=== PATIENT | male | born 1955 | race Caucasian/White ===

== ENCOUNTER 2017-08-12 18:27 | Inpatient (IN) | payer OTHER, BC ==
[~2017-08-12] VITALS: Ht 182.9 cm; Wt 109.0 kg
[2017-08-12] VITALS (9 sets, daily range): BP systolic 105–132; BP diastolic 48–59
[~2017-08-12 18:27] MED LIST: heparin 10,000 units/1 ML INJ ONE; heparin, porcine/D5W 25,000 units/250ml premix IV ONE; nitroGLYCERIN 0.4mg SUBLingual tab SL ONE; nitroGLYCERIN in D5W 50mg/250ml (Tridil) infusion IV ONE
[2017-08-12] MEDS ORDERED: nitroGLYCERIN-Tridil 50MG/D5W 250 ML IV PRN (18:36)
[2017-08-12] MEDS ORDERED: aspirin 81mg tab.chew PO ONE ×3 (18:40→21:35)
[2017-08-12] MEDS ORDERED: heparin 10,000 units/1 ML INJ IV ONE (18:40)
[2017-08-12 18:51] LABS: BASOPHILS % (AUTO) 0.4 % (0-1); EOSINOPHILS # (AUTO) 0.2 X10'3 (0-0.9); EOSINOPHILS % (AUTO) 2.1 % (0-6); HEMATOCRIT 43.1 % (42.0-52.0); HEMOGLOBIN 14.9 g/dl (14.0-17.9); LYMPHOCYTES # (AUTO) 2.8 X10'3 (1.1-4.8); LYMPHOCYTES % (AUTO) 23.7 % (21-51); MEAN CORPUSCULAR HEMOGLOBIN 30.6 PG (27.0-31.0); MEAN CORPUSCULAR HGB CONC 34.7 % (33.0-36.5); MEAN CORPUSCULAR VOLUME 88.2 FL (78-98); MEAN PLATELET VOLUME 10.3 FL (7.4-10.4); MONOCYTES # (AUTO) 0.9 X10'3 (0-0.9); MONOCYTES % (AUTO) 7.5 % (2-12); NEUTROPHILS % (AUTO) 66.3 % (42-75); PLATELET COUNT 183 X10'3 (140-440); RED BLOOD COUNT 4.89 X10'6 (4.70-6.10); RED CELL DISTRIBUTION WIDTH 15.1 % (11.5-14.5)
[2017-08-12] MEDS: nitroGLYCERIN 0.4mg SUBLingual tab SL PRN ×2 (18:51→19:08)
[2017-08-12 18:59] LABS: PARTIAL THROMBOPLASTIN TIME 22 SECONDS (22-32); PROTHROMBIN TIME 10.2 SECONDS (9.0-12.0)
[2017-08-12] MEDS ORDERED: fentaNYL/PF 50MCG/1 ML 2ML syringe ONE (19:02)
[2017-08-12] MEDS ORDERED: iohexol 350 MG/1 ML 200ml bottle ONE (19:02)
[2017-08-12] MEDS ORDERED: midazolam 2 mg/2 ml injection ONE (19:02)
[2017-08-12] MEDS ORDERED: heparin 1,000unit/ml 10ml vial 10 ML ONE (19:02)
[2017-08-12] MEDS ORDERED: LIDOcaine 1%/PF (10mg/ml) 5ml vial ONE (19:02)
[2017-08-12 19:11] LABS: ALANINE AMINOTRANSFERASE 38 U/L (12-78); ALBUMIN 3.5 G/DL (3.4-5.0); ALKALINE PHOSPHATASE 89 IU/L (46-116); ANION GAP 8 (8-16); ASPARTATE AMINO TRANSFERASE 19 U/L (10-37); BILIRUBIN,TOTAL 1.1 MG/DL (0.1-1.0); BLOOD UREA NITROGEN 26 MG/DL (7-18); BUN/CREATININE RATIO 16.3 (5.4-32.0); CALCIUM 8.8 MG/DL (8.5-10.1); CHLORIDE 103 MMOL/L (99-107); GLUCOSE 368 MG/DL (70-104); SODIUM 138 MMOL/L (135-145); TOTAL CARBON DIOXIDE 26.6 MMOL/L (24-32); TOTAL PROTEIN 6.9 G/DL (6.4-8.2); eGFR 44 ML/MIN
[2017-08-12] MEDS ORDERED: ticagrelor 90mg tablet ONE (19:37)
[2017-08-12] MEDS ORDERED: nitroGLYCERIN 0.4mg SUBLingual tab SL PRN (20:00)
[2017-08-12] MEDS ORDERED: temazepam 15mg capsule PO PRN (21:15)
[2017-08-12] MEDS: amLODIPine 5mg tablet PO SCH (21:15)
[2017-08-12] MEDS ORDERED: normal saline 1000ml 1,000 ML IV SCH (21:35)
[2017-08-12] MEDS ORDERED: OXAZEpam 15mg capsule PO PRN (21:35)
[2017-08-12] MEDS ORDERED: ondansetron/PF 4mg/2ml inj IV PRN (21:35)
[2017-08-12] MEDS ORDERED: normal saline 1000ml 1,000 ML IV ONE (21:35)
[2017-08-12] MEDS ORDERED: proCHLORperazine 10 MG/2 ml inj IV PRN (21:35)
[2017-08-12 21:58] LABS: HEMOGLOBIN A1C 7.2 % (4.5-6.2)
[2017-08-12] MEDS: atorvastatin 20mg tablet PO SCH (22:03)
[2017-08-12 22:05] LABS: CHOL/HDL RATIO 2.5 (0.00-4.99); CHOLESTEROL 173 MG/DL (0-200); HDL CHOLESTEROL 69 MG/DL (35-60); LDL CHOLESTEROL 90 MG/DL (50-100); TRIGLYCERIDES 22 MG/DL (20-135)
[2017-08-13] VITALS (7 sets, daily range): BP systolic 121–152; BP diastolic 54–70
[2017-08-13 05:58] LABS: BASOPHILS # (AUTO) 0.1 X10'3 (0-0.2); BASOPHILS % (AUTO) 0.5 % (0-1); EOSINOPHILS # (AUTO) 0.3 X10'3 (0-0.9); EOSINOPHILS % (AUTO) 2.6 % (0-6); HEMATOCRIT 40.5 % (42.0-52.0); HEMOGLOBIN 14.1 g/dl (14.0-17.9); LYMPHOCYTES # (AUTO) 1.4 X10'3 (1.1-4.8); LYMPHOCYTES % (AUTO) 12.6 % (21-51); MEAN CORPUSCULAR HEMOGLOBIN 31.2 PG (27.0-31.0); MEAN CORPUSCULAR HGB CONC 34.9 % (33.0-36.5); MEAN CORPUSCULAR VOLUME 89.3 FL (78-98); MEAN PLATELET VOLUME 10.6 FL (7.4-10.4); MONOCYTES # (AUTO) 0.8 X10'3 (0-0.9); MONOCYTES % (AUTO) 7.1 % (2-12); NEUTROPHILS # (AUTO) 8.6 X10'3 (1.8-7.7); NEUTROPHILS % (AUTO) 77.2 % (42-75); PLATELET COUNT 157 X10'3 (140-440); RED BLOOD COUNT 4.53 X10'6 (4.70-6.10); WHITE BLOOD COUNT 11.2 X10'3 (4.5-11.0)
[2017-08-13 06:10] LABS: ALBUMIN 2.9 G/DL (3.4-5.0); ANION GAP 8 (8-16); BLOOD UREA NITROGEN 23 MG/DL (7-18); BUN/CREATININE RATIO 20.5 (5.4-32.0); CALCIUM 8.7 MG/DL (8.5-10.1); CHLORIDE 106 MMOL/L (99-107); CREATININE 1.12 MG/DL (0.60-1.10); GLUCOSE 136 MG/DL (70-104); POTASSIUM 3.6 MMOL/L (3.5-5.1); SODIUM 140 MMOL/L (135-145); TOTAL CARBON DIOXIDE 25.9 MMOL/L (24-32); eGFR 66 ML/MIN
[2017-08-13 07:58] LABS: LARGE PLATELETS FEW; PLATELET ESTIMATE NORMAL
[2017-08-13] MEDS: celeCOXIB 100mg capsule PO SCH (08:07)
[2017-08-13] MEDS: ticagrelor 90mg tablet PO SCH ×2 (08:08→20:20)
[2017-08-13] MEDS: atorvastatin 20mg tablet PO SCH (08:09)
[2017-08-13] MEDS: amLODIPine 5mg tablet PO SCH (08:09)
[2017-08-13] MEDS: aspirin 81mg tab.chew PO SCH (08:09)
[2017-08-13] MEDS ORDERED: ASPI-974 PO (23:44)
[2017-08-13] MEDS ORDERED: SILD20TA2 PO (23:44)
[2017-08-13] MEDS ORDERED: ATOR-2 PO (23:44)
[2017-08-13] MEDS ORDERED: LISI40TA4 PO (23:44)
[2017-08-13] MEDS ORDERED: FURO-150 PO (23:44)
[2017-08-13] MEDS ORDERED: HYDR25TA4 PO (23:44)
[2017-08-13] MEDS ORDERED: NEBI5TAB10 PO (23:44)
[2017-08-13] MEDS ORDERED: TEMA15CA PO (23:44)
[2017-08-13] MEDS ORDERED: CELE-85 PO (23:44)
[2017-08-14] MEDS ORDERED: AMLO10TA PO (00:06)
[2017-08-14 02:00] VITALS: BP 134/61
[2017-08-14 06:00] VITALS: BP 127/68
[2017-08-14 06:07] LABS: BASOPHILS # (AUTO) 0.1 X10'3 (0-0.2); BASOPHILS % (AUTO) 0.7 % (0-1); EOSINOPHILS # (AUTO) 0.3 X10'3 (0-0.9); EOSINOPHILS % (AUTO) 3.4 % (0-6); HEMOGLOBIN 14.9 g/dl (14.0-17.9); LYMPHOCYTES # (AUTO) 1.4 X10'3 (1.1-4.8); LYMPHOCYTES % (AUTO) 16.5 % (21-51); MEAN CORPUSCULAR HGB CONC 34.7 % (33.0-36.5); MEAN CORPUSCULAR VOLUME 89.4 FL (78-98); MEAN PLATELET VOLUME 10.6 FL (7.4-10.4); MONOCYTES # (AUTO) 0.7 X10'3 (0-0.9); MONOCYTES % (AUTO) 8.3 % (2-12); NEUTROPHILS # (AUTO) 6.2 X10'3 (1.8-7.7); NEUTROPHILS % (AUTO) 71.1 % (42-75); PLATELET COUNT 164 X10'3 (140-440); RED BLOOD COUNT 4.81 X10'6 (4.70-6.10); RED CELL DISTRIBUTION WIDTH 15.2 % (11.5-14.5); WHITE BLOOD COUNT 8.7 X10'3 (4.5-11.0)
[2017-08-14 06:15] LABS: ANION GAP 9 (8-16); BLOOD UREA NITROGEN 16 MG/DL (7-18); BUN/CREATININE RATIO 14.3 (5.4-32.0); CALCIUM 9.1 MG/DL (8.5-10.1); CHLORIDE 108 MMOL/L (99-107); CREATININE 1.12 MG/DL (0.60-1.10); GLUCOSE 99 MG/DL (70-104); SODIUM 142 MMOL/L (135-145); TOTAL CARBON DIOXIDE 25.5 MMOL/L (24-32); eGFR 66 ML/MIN
[2017-08-14 06:17] LABS: POTASSIUM 4.1 MMOL/L (3.5-5.1)
[2017-08-14] MEDS ORDERED: ASPI-974 PO (06:36)
[2017-08-14] MEDS ORDERED: ATOR-2 PO (06:38)
[2017-08-14] MEDS ORDERED: CELE-85 PO (06:39)
[2017-08-14] MEDS ORDERED: FURO-150 PO (06:40)
[2017-08-14] MEDS ORDERED: HYDR25TA4 PO (06:40)
[2017-08-14] MEDS ORDERED: LISI40TA4 PO (06:42)
[2017-08-14] MEDS ORDERED: NEBI5TAB10 PO (06:43)
[2017-08-14] MEDS ORDERED: NITR0.4T51 SL (06:52)
[2017-08-14] MEDS ORDERED: ASPI-1265 PO (06:52)
[2017-08-14] MEDS ORDERED: TICA90TA PO (06:52)
[2017-08-14] MEDS: amLODIPine 5mg tablet PO SCH (07:46)
[2017-08-14] MEDS: atorvastatin 20mg tablet PO SCH (07:46)
[2017-08-14] MEDS: ticagrelor 90mg tablet PO SCH (07:47)
[2017-08-14] MEDS: celeCOXIB 100mg capsule PO SCH (07:47)
[2017-08-14] MEDS: aspirin 81mg tab.chew PO SCH (07:47)
== END 2017-08-14 11:10 | disposition home or self-care (01) | DRG 246 ==
LOC: ER 18:28 → PCU 3S 19:57
PROVIDERS: ADMIT Internal Medicine Interventional Cardiology; ATTEND Internal Medicine Interventional Cardiology
PROC: 027034Z Dilation of Coronary Artery, One Artery with Drug-eluting Intraluminal Device, Percutaneous Approach (ICD-10-PCS; principal; 2017-08-12)
PROC: 4A023N7 Measurement of Cardiac Sampling and Pressure, Left Heart, Percutaneous Approach (ICD-10-PCS; 2017-08-12)
PROC: B2111ZZ Fluoroscopy of Multiple Coronary Arteries using Low Osmolar Contrast (ICD-10-PCS; 2017-08-12)
PROC: B2151ZZ Fluoroscopy of Left Heart using Low Osmolar Contrast (ICD-10-PCS; 2017-08-12)
PROC: B41F1ZZ Fluoroscopy of Right Lower Extremity Arteries using Low Osmolar Contrast (ICD-10-PCS; 2017-08-12)
DX: I21.09 ST elevation (STEMI) myocardial infarction involving other coronary artery of anterior wall (principal); I50.31 Acute diastolic (congestive) heart failure; E10.22 Type 1 diabetes mellitus with diabetic chronic kidney disease; N18.3 Chronic kidney disease, stage 3 (moderate); I13.0 Hypertensive heart and chronic kidney disease with heart failure and stage 1 through stage 4 chronic kidney disease, or unspecified chronic kidney disease; E78.2 Mixed hyperlipidemia; E78.00 Pure hypercholesterolemia, unspecified; I25.10 Atherosclerotic heart disease of native coronary artery without angina pectoris; Z96.41 Presence of insulin pump (external) (internal); Z79.82 Long term (current) use of aspirin; Z79.899 Other long term (current) drug therapy; Z88.6 Allergy status to analgesic agent
CPT/HCPCS: 93306; 93458; 96365; 96375; 99285; C9606; 36415; 71045; 80048; 80053; 80061; 82948; 83036; 83735; 83880; 84484; 85025; 85610; 85730; 93005; 99152; 99153; A4620; A6212; A6257; C1725; C1760; C1769; C1874; J1644; J2001; J2250; J3010; J3490; J7030; Q9967